=== PATIENT | female | born 1985 | race Caucasian/White ===

== ENCOUNTER 2016-06-27 20:51 | Inpatient (IN) | payer OTHER ==
[2016-06-28] MEDS ORDERED: Misoprostol TAB* 100 MCG PO ONE (06:02)
[2016-06-28] MEDS ORDERED: Misoprostol TAB* 100 MCG ONE (06:05)
[2016-06-28] MEDS ORDERED: LACTATED RINGERS IVPB SCH (11:00)
[2016-06-28] MEDS ORDERED: OXYTOCIN IVPB SCH (11:00)
[2016-06-28 11:35] LABS: Hematocrit 36 % (35-47); Hemoglobin 12.4 g/dl (12.0-16.0); Mean Corpuscular HGB Conc 35 g/dl (31-36); Mean Corpuscular Hemoglobin 33 pg (27-31); Mean Corpuscular Volume 95 fL (80-97); Mean Platelet Volume 11 um3 (7.4-10.4); Red Blood Count 3.73 10^6/ul (4.0-5.4); Red Cell Distribution Width 13 % (10.5-15); White Blood Count 17.5 10^3/ul (3.5-10.8)
[2016-06-28] MEDS ORDERED: D5LR 1000 ML BAG* 1,000 ML IV SCH (16:00)
[2016-06-28] MEDS ORDERED: fentaNYL* 50 MCG/ML 2 ML VIAL (100 MCG VIAL) ONE (16:24)
[2016-06-28] MEDS ORDERED: fentaNYL* 50 MCG/ML 2 ML VIAL (100 MCG VIAL) IV SLOW PU ONE ×3 (16:25→18:18)
[2016-06-29] MEDS ORDERED: Mineral Oil Sterile, TOPICAL* 25 ML BTL ONE (01:46)
[2016-06-29] MEDS ORDERED: Ibuprofen TAB* 600 MG PO PRN (02:43)
[2016-06-29] MEDS ORDERED: Acetaminophen TAB* 325 MG PO PRN (02:43)
[2016-06-29] MEDS ORDERED: Dibucaine 1% 28.35 GM TUBE PR PRN (02:43)
[2016-06-29] MEDS ORDERED: Misoprostol TAB* 200 MCG ONE (03:32)
[2016-06-29] MEDS ORDERED: Simethicone CHEW TAB* 80 MG PO SCH (08:30)
[2016-06-29] MEDS: Docusate CAP* 100 MG PO SCH ×3 (09:04→20:13)
[2016-06-30 07:50] LABS: Hematocrit 31 % (35-47); Hemoglobin 10.4 g/dl (12.0-16.0); Mean Corpuscular HGB Conc 34 g/dl (31-36); Mean Corpuscular Hemoglobin 33 pg (27-31); Mean Corpuscular Volume 97 fL (80-97); Mean Platelet Volume 11 um3 (7.4-10.4); Red Blood Count 3.15 10^6/ul (4.0-5.4); Red Cell Distribution Width 13 % (10.5-15); White Blood Count 18.3 10^3/ul (3.5-10.8)
[2016-06-30] MEDS: Witch Hazel PAD* JAR TOPICAL PRN (07:56)
[2016-06-30] MEDS ORDERED: Ferrous Gluconate TAB* 324 MG TAB PO SCH (09:00)
[2016-06-30] MEDS: Docusate CAP* 100 MG PO SCH ×2 (09:08→19:59)
[2016-07-01] MEDS: Docusate CAP* 100 MG PO SCH (07:54)
[2016-07-01] MEDS: Witch Hazel PAD* JAR TOPICAL PRN (08:28)
[2016-07-01 08:32] VITALS: BP 100/52
== END 2016-07-01 11:44 | disposition home or self-care (01) | DRG 775 ==
LOC: MCHOBOUT 20:51 → MCHOB 21:54
PROVIDERS: ADMIT Midwife; ATTEND Midwife
PROC: 10E0XZZ Delivery of Products of Conception, External Approach (ICD-10-PCS; principal; 2016-06-29)
PROC: 0KQM0ZZ Repair Perineum Muscle, Open Approach (ICD-10-PCS; 2016-06-29)
PROC: 4A1HXCZ Monitoring of Products of Conception, Cardiac Rate, External Approach (ICD-10-PCS; 2016-06-29)
DX: O48.0 Post-term pregnancy (principal); O87.2 Hemorrhoids in the puerperium; O42.12 Full-term premature rupture of membranes, onset of labor more than 24 hours following rupture; O70.1 Second degree perineal laceration during delivery; Z3A.40 40 weeks gestation of pregnancy; Z37.0 Single live birth; Z88.1 Allergy status to other antibiotic agents
CPT/HCPCS: 36415; 76815; 85025; 86850; 86900; 86901; A9270-GY; J3010; S0191